=== PATIENT | female | born 1955 | race Caucasian/White ===

== ENCOUNTER 2017-03-18 07:55 | Day surgery (SDC) | payer BC ==
--- NOTE | ~2017-03-18 | EGD ---
EGD REPORT [facility] [address] [id number] NAME: KERRY SAUER : [birth year] STATUS : REG [facility] PAT#: [id number] AGE: 61 ADM/REG DATE : 03/18/17 MR#: [id number] REPORT SERV DATE: 03/18/17 DICTATED BY: JOEY ESCAMILLA III DATE: 03/18/17 REPORT STATUS : Draft TRANSCRIBED BY: [facility] DATE: 03/18/17 Endoscopy Center Patient Name: Kerry Sauer Date of : 1955 Attending MD: JOEY ESCAMILLA III, MD Procedure Date No Time: 03/18/2017 Procedure: Colonoscopy Indications: High risk colon cancer surveillance: Personal history of colonic polyps Referring MD: POLLO RASHID Medicines: Propofol per Anesthesia Complications: No immediate complications. Procedure: Pre-Anesthesia Assessment: - ASA Grade Assessment: III - A patient with severe systemic disease. After I obtained informed consent, the scope was passed under direct vision. Throughout the procedure, the patient's blood pressure, pulse, and oxygen saturations were monitored continuously. The [facility] [id number] was introduced through the anus and advanced to the terminal ileum. The colonoscopy was performed with ease. The patient tolerated the procedure well. The quality of the bowel preparation was good. Findings: Multiple diverticula were found in the sigmoid colon. Internal hemorrhoids were found during retroflexion. The terminal ileum appeared normal. There was evidence of a prior end-to-side ileo-colonic anastomosis in the ascending colon and in the cecum. This was patent. This was characterized by healthy appearing mucosa. This was traversed. Impression: - Diverticulosis in the sigmoid colon. - Internal hemorrhoids. - The examined portion of the ileum was normal. - Patent end-to-side ileo-colonic anastomosis. Recommendation: - Patient has a contact number available for emergencies. The signs and symptoms of potential delayed complications were discussed with the patient. Return to normal activities tomorrow. Written discharge instructions were provided to the patient. - Discharge patient to home. - Return to previous diet. - Continue present medications. EGD REPORT [address] [address] NAME: KERRY SAUER : [birth year] STATUS : REG [facility] PAT#: [id number] AGE: 61 ADM/REG DATE : 03/18/17 MR#: [id number] REPORT SERV DATE: 03/18/17 DICTATED BY: JOEY ESCAMILLA III DATE: 03/18/17 REPORT STATUS : Draft TRANSCRIBED BY: [employer] DATE: 03/18/17 - Repeat colonoscopy in 5 years for surveillance. Procedure Code(s): --- Professional --- G0105, Colorectal cancer screening; colonoscopy on individual at high risk Diagnosis Code(s): --- Professional --- K64.8, Other hemorrhoids K57.30, Diverticulosis of large intestine without perforation or abscess without bleeding Z98.0, Intestinal bypass and anastomosis status Z86.010, Personal history of colonic polyps CPT copyright 2013 [employer]. All rights reserved. The codes documented in this report are preliminary and upon student affairs dean review may be revised to meet current compliance requirements. JOEY ESCAMILLA III, MD 03/18/2017 10:03 AM This report has been signed electronically. Number of Addenda: 0 Note Initiated On: 03/18/2017 9:35 AM Scope Withdrawal Time 0 hours 10 minutes 38 seconds [id number] [place] [id number]
[~2017-03-18 07:55] MED LIST: ACCUPRIL40 MG PO; ACTOPLUS M15 MG/850 PO; ADVIL PO; ALIGN4 MG PO; AUG500 PO; BEN25 PO; BIST PO; CULTURELLE; MOBIC15 MG PO; PCET PO; PR12.5 PO; PROAIR HFA INH; SENTAB PO; SYMBICORT 160/41 INH INH; ZYRTEC ALLGY10 MG PO
== END 2017-03-18 23:59 | disposition home or self-care (01) ==
LOC: DMU 07:55
PROVIDERS: Internal Medicine Gastroenterology
PROC: 0DJD8ZZ Inspection of Lower Intestinal Tract, Via Natural or Artificial Opening Endoscopic (ICD-10-PCS; principal; 2017-03-18 09:30)
DX: Z12.11 Encounter for screening for malignant neoplasm of colon (principal); K64.8 Other hemorrhoids; K57.30 Diverticulosis of large intestine without perforation or abscess without bleeding; Z98.0 Intestinal bypass and anastomosis status; Z86.010 Personal history of colon polyps
CPT/HCPCS: 82962